=== PATIENT | male | born 1945 | race Caucasian/White ===

== ENCOUNTER → 2016-05-12 | Outpatient (CLI) | payer MEDICARE, OTHER ==
[2016-05-12 12:19] LABS: Anion Gap 10 mmol/L; Blood Urea Nitrogen 17 mg/dL (9-20); Calcium 9.3 mg/dL (8.4-10.2); Carbon Dioxide 28 mmol/L (22-30); Chloride 107 mmol/L (98-107); Glucose 130 mg/dL (74-99); Non-African American GFR(MDRD) >60 (>60 ml/min/1.73 sqM); Potassium 4.8 mmol/L (3.5-5.1); Sodium 145 mmol/L (137-145)
[2016-05-12 12:42] LABS: Prostate Specific Antigen <0.06 ng/mL (0.00-4.00)
== END | disposition home or self-care (01) ==
LOC: LABWHC1 08:07
PROVIDERS: ATTEND Urology
DX: C61 Malignant neoplasm of prostate (principal); E11.9 Type 2 diabetes mellitus without complications
CPT/HCPCS: 36415; 80048; 84153

== ENCOUNTER → 2016-09-20 | Outpatient (CLI) | payer MEDICARE ==
[2016-09-20 10:54] LABS: ALT 39 U/L (21-72); AST 25 U/L (17-59); Alkaline Phosphatase 73 U/L (38-126); Anion Gap 8 mmol/L; Blood Urea Nitrogen 14 mg/dL (9-20); Calcium 8.9 mg/dL (8.4-10.2); Carbon Dioxide 29 mmol/L (22-30); Chloride 106 mmol/L (98-107); Cholesterol 96 mg/dL (<200); Glucose 112 mg/dL (74-99); HDL Cholesterol 28 mg/dL (40-60); Non-African American GFR(MDRD) >60 (>60 ml/min/1.73 sqM); Sodium 143 mmol/L (137-145); Total Bilirubin 0.6 mg/dL (0.2-1.3); Total Protein 6.6 g/dL (6.3-8.2); Triglycerides 66 mg/dL (<150)
== END | disposition home or self-care (01) ==
LOC: LABWHC1 09:19
PROVIDERS: ATTEND Internal Medicine Interventional Cardiology
DX: E78.2 Mixed hyperlipidemia (principal)
CPT/HCPCS: 36415; 80053; 80061

== ENCOUNTER → 2016-11-01 | Outpatient (CLI) | payer MEDICARE ==
[2016-11-01 09:06] LABS: CH 30.3; CHCM 32.3; HCT 45.5 % (39.0-53.0); HDW 2.36; HGB 15.2 gm/dL (13.0-17.5); MCH 31.6 pg (25.0-35.0); MCHC 33.5 g/dL (31.0-37.0); MCV 94.4 fL (80.0-100.0); Mean Platelet Volume 7.7; RBC 4.81 m/uL (4.30-5.90); RDW 12.7 % (11.5-15.5); WBC 8.4 k/uL (3.8-10.6)
[2016-11-01 09:13] LABS: ALT 36 U/L (21-72); AST 21 U/L (17-59); Alkaline Phosphatase 79 U/L (38-126); Anion Gap 8 mmol/L; Blood Urea Nitrogen 15 mg/dL (9-20); Carbon Dioxide 30 mmol/L (22-30); Chloride 106 mmol/L (98-107); Cholesterol 104 mg/dL (<200); Glucose 119 mg/dL (74-99); HDL Cholesterol 31 mg/dL (40-60); Non-African American GFR(MDRD) >60 (>60 ml/min/1.73 sqM); Potassium 4.6 mmol/L (3.5-5.1); Sodium 144 mmol/L (137-145); Total Bilirubin 0.5 mg/dL (0.2-1.3); Total Protein 6.5 g/dL (6.3-8.2); Triglycerides 80 mg/dL (<150)
[2016-11-01 10:54] LABS: Hemoglobin A1C 6.7 % (4.2-6.1)
== END | disposition home or self-care (01) ==
LOC: LABWHC1 07:56
PROVIDERS: ATTEND Family Medicine
DX: Z00.00 Encounter for general adult medical examination without abnormal findings (principal); E11.9 Type 2 diabetes mellitus without complications; E03.8 Other specified hypothyroidism
CPT/HCPCS: 36415; 80053; 80061; 83036; 84439; 84443; 85027

== ENCOUNTER → 2017-04-01 | Outpatient (CLI) | payer MEDICARE ==
[2017-04-01 08:58] LABS: ALT 66 U/L (21-72); AST 37 U/L (17-59); Cholesterol 127 mg/dL (<200); HDL Cholesterol 26 mg/dL (40-60)
== END | disposition home or self-care (01) ==
LOC: LABWHC1 08:05
PROVIDERS: ATTEND Internal Medicine Interventional Cardiology
DX: E78.2 Mixed hyperlipidemia (principal)
CPT/HCPCS: 36415; 80061; 84450; 84460

== ENCOUNTER → 2017-05-10 | Outpatient (CLI) | payer MEDICARE ==
[2017-05-10 11:08] LABS: Basophils % (A) 1 %; Eosinophils # (A) 0.1 k/uL (0-0.7); Eosinophils % (A) 2 %; HCT 44.7 % (39.0-53.0); HGB 14.7 gm/dL (13.0-17.5); Lymphocytes # (A) 0.9 k/uL (1.0-4.8); Lymphocytes % (A) 11 %; MCH 30.7 pg (25.0-35.0); MCHC 32.8 g/dL (31.0-37.0); MCV 93.7 fL (80.0-100.0); Mean Platelet Volume 8.2; Monocytes # (A) 0.5 k/uL (0-1.0); Monocytes % (A) 6 %; Neutrophils # (A) 6.2 k/uL (1.3-7.7); Neutrophils % (A) 80 %; Platelet Count 205 k/uL (150-450); RBC 4.77 m/uL (4.30-5.90); RDW 13.8 % (11.5-15.5); WBC 7.8 k/uL (3.8-10.6)
[2017-05-10 11:19] LABS: ALT 69 U/L (21-72); AST 36 U/L (17-59); Albumin 3.9 g/dL (3.5-5.0); Alkaline Phosphatase 75 U/L (38-126); Anion Gap 11 mmol/L; Blood Urea Nitrogen 18 mg/dL (9-20); Calcium 9.1 mg/dL (8.4-10.2); Carbon Dioxide 27 mmol/L (22-30); Chloride 103 mmol/L (98-107); Cholesterol 116 mg/dL (<200); Glucose 150 mg/dL (74-99); HDL Cholesterol 22 mg/dL (40-60); LDL Cholesterol,Calculated 71 mg/dL (0-99); Potassium 4.8 mmol/L (3.5-5.1); Sodium 141 mmol/L (137-145); Total Bilirubin 0.8 mg/dL (0.2-1.3); Total Protein 6.4 g/dL (6.3-8.2); Triglycerides 115 mg/dL (<150)
[2017-05-10 11:55] LABS: Prostate Specific Antigen <0.10 ng/mL (0.00-4.00)
[2017-05-10 17:09] LABS: Hemoglobin A1C 8.7 % (4.0-6.0)
== END | disposition home or self-care (01) ==
LOC: LABWHC1 10:17
PROVIDERS: ATTEND Family Medicine
DX: E78.5 Hyperlipidemia, unspecified (principal); E03.9 Hypothyroidism, unspecified; E11.9 Type 2 diabetes mellitus without complications; D07.5 Carcinoma in situ of prostate; D49.59 Neoplasm of unspecified behavior of other genitourinary organ
CPT/HCPCS: 36415; 80053; 80061; 83036; 84153; 84439; 84443; 85025

== ENCOUNTER → 2017-10-17 | Outpatient (CLI) | payer MEDICARE ==
[2017-10-17 09:42] LABS: ALT 41 U/L (21-72); AST 27 U/L (17-59); Cholesterol 99 mg/dL (<200); Creatine Kinase 79 U/L (55-170); HDL Cholesterol 26 mg/dL (40-60); LDL Cholesterol,Calculated 57 mg/dL (0-99); Triglycerides 82 mg/dL (<150)
== END | disposition home or self-care (01) ==
LOC: LABWHC1 08:17
PROVIDERS: ATTEND Internal Medicine Interventional Cardiology
DX: E78.2 Mixed hyperlipidemia (principal)
CPT/HCPCS: 36415; 80061; 82550; 84450; 84460

== ENCOUNTER → 2017-10-31 | Outpatient (CLI) | payer MEDICARE ==
[2017-10-31 08:26] LABS: Basophils # (A) 0.1 k/uL (0-0.2); Basophils % (A) 1 %; Eosinophils # (A) 0.2 k/uL (0-0.7); Eosinophils % (A) 3 %; HCT 45.3 % (39.0-53.0); HGB 14.8 gm/dL (13.0-17.5); Lymphocytes # (A) 2.3 k/uL (1.0-4.8); Lymphocytes % (A) 28 %; MCH 30.4 pg (25.0-35.0); MCHC 32.6 g/dL (31.0-37.0); MCV 93.2 fL (80.0-100.0); Mean Platelet Volume 8.1; Monocytes # (A) 0.6 k/uL (0-1.0); Monocytes % (A) 8 %; Neutrophils # (A) 4.9 k/uL (1.3-7.7); Neutrophils % (A) 59 %; Platelet Count 227 k/uL (150-450); RBC 4.86 m/uL (4.30-5.90); RDW 13.3 % (11.5-15.5); WBC 8.3 k/uL (3.8-10.6)
[2017-10-31 08:36] LABS: Albumin 3.9 g/dL (3.5-5.0); Calcium 9.1 mg/dL (8.4-10.2); Potassium 4.9 mmol/L (3.5-5.1); Total Bilirubin 0.4 mg/dL (0.2-1.3); Total Protein 6.2 g/dL (6.3-8.2)
[2017-10-31 08:52] LABS: T4, Free (Free Thyroxine) 1.07 ng/dL (0.78-2.19)
[2017-10-31 19:04] LABS: Hemoglobin A1C 6.3 % (4.0-6.0)
== END | disposition home or self-care (01) ==
LOC: LABWHC1 07:39
PROVIDERS: ATTEND Family Medicine
DX: E11.9 Type 2 diabetes mellitus without complications (principal)
CPT/HCPCS: 36415; 80053; 83036; 84439; 84443; 85025

== ENCOUNTER → 2018-04-27 | Outpatient (CLI) | payer MEDICARE ==
[2018-04-27 08:08] LABS: Basophils # (A) 0.1 k/uL (0-0.2); Basophils % (A) 1 %; Eosinophils # (A) 0.2 k/uL (0-0.7); Eosinophils % (A) 2 %; HCT 47.6 % (39.0-53.0); HGB 15.5 gm/dL (13.0-17.5); Lymphocytes # (A) 2.2 k/uL (1.0-4.8); Lymphocytes % (A) 26 %; MCH 30.9 pg (25.0-35.0); MCHC 32.6 g/dL (31.0-37.0); Mean Platelet Volume 7.7; Monocytes # (A) 0.5 k/uL (0-1.0); Monocytes % (A) 6 %; Neutrophils # (A) 5.3 k/uL (1.3-7.7); Neutrophils % (A) 63 %; Platelet Count 228 k/uL (150-450); RBC 5.01 m/uL (4.30-5.90); WBC 8.3 k/uL (3.8-10.6)
[2018-04-27 12:44] LABS: Albumin 4.4 g/dL (3.80-4.90); Albumin/Globulin Ratio 2.59 (1.20-2.10); Anion Gap 8.5 mmol/L (4.00-12.00); Calcium 8.9 mg/dL (8.7-10.3); Carbon Dioxide 28.5 mmol/L (21.6-31.8); Globulin 1.7 g/dL (1.6-3.3); Potassium 4.5 mmol/L (3.5-5.5); Total Bilirubin 0.7 mg/dL (0.3-1.2); Total Protein 6.1 g/dL (6.2-8.2)
[2018-04-27 12:53] LABS: T4, Free (Free Thyroxine) 1.2 ng/dL (0.80-1.80)
[2018-04-27 19:12] LABS: Hemoglobin A1C 7.6 % (4.0-6.0)
== END | disposition home or self-care (01) ==
LOC: LABWHC1 07:42
PROVIDERS: ATTEND Internal Medicine Interventional Cardiology
DX: C61 Malignant neoplasm of prostate (principal); E78.2 Mixed hyperlipidemia; E03.9 Hypothyroidism, unspecified; E11.9 Type 2 diabetes mellitus without complications; E66.9 Obesity, unspecified
CPT/HCPCS: 36415; 80053; 80061; 83036; 84153; 84439; 84443; 85025

== ENCOUNTER → 2019-05-08 | Outpatient (CLI) | payer MEDICARE ==
[2019-05-08 10:04] LABS: HGB 15.3 gm/dL (13.0-17.5); MCH 30.9 pg (25.0-35.0); MCHC 31.9 g/dL (31.0-37.0); MCV 96.6 fL (80.0-100.0); Mean Platelet Volume 8.2; Platelet Count 247 k/uL (150-450); RBC 4.97 m/uL (4.30-5.90); RDW 12.7 % (11.5-15.5)
[2019-05-08 15:56] LABS: African American GFR (CKD) 97.9 (60.0-200.0); Albumin 4.3 g/dL (3.80-4.90); Albumin/Globulin Ratio 2.53 (1.60-3.17); Anion Gap 6.9 mmol/L (4.00-12.00); BUN/Creat Ratio 23.33 Ratio (12.00-20.00); Calcium 9.1 mg/dL (8.7-10.3); Carbon Dioxide 27.1 mmol/L (21.6-31.8); Chol/HDL Ratio 4.61; Globulin 1.7 g/dL (1.6-3.3); Non-African American GFR(CKD) 84.4 (60.0-200.0); Potassium 4.7 mmol/L (3.5-5.5); Total Bilirubin 0.6 mg/dL (0.3-1.2)
[2019-05-08 16:05] LABS: T4, Free (Free Thyroxine) 1.3 ng/dL (0.80-1.80)
[2019-05-08 18:23] LABS: Hemoglobin A1C 6.8 % (4.0-6.0)
== END | disposition home or self-care (01) ==
LOC: LABWHC1 08:35
PROVIDERS: ATTEND Nurse Practitioner Adult Health
DX: E78.2 Mixed hyperlipidemia (principal); C61 Malignant neoplasm of prostate; E11.9 Type 2 diabetes mellitus without complications; E03.9 Hypothyroidism, unspecified
CPT/HCPCS: 36415; 80053; 80061; 83036; 84153; 84439; 84443; 85027

== ENCOUNTER → 2019-11-06 | Outpatient (CLI) | payer MEDICARE ==
[2019-11-06 10:30] LABS: HCT 45.7 % (39.0-53.0); MCH 31.9 pg (25.0-35.0); MCHC 32.8 g/dL (31.0-37.0); MCV 97.4 fL (80.0-100.0); Mean Platelet Volume 8.3; Platelet Count 222 k/uL (150-450); RBC 4.69 m/uL (4.30-5.90); WBC 6.2 k/uL (3.8-10.6)
[2019-11-06 17:03] LABS: T4, Free (Free Thyroxine) 1.3 ng/dL (0.80-1.80)
[2019-11-06 17:19] LABS: African American GFR (CKD) 85.6 (60.0-200.0); Albumin 4.2 g/dL (3.80-4.90); Albumin/Globulin Ratio 2.21 (1.60-3.17); Anion Gap 7.2 mmol/L (4.00-12.00); Calcium 9.1 mg/dL (8.7-10.3); Carbon Dioxide 25.8 mmol/L (21.6-31.8); Chol/HDL Ratio 4.65; Globulin 1.9 g/dL (1.6-3.3); LDL Cholesterol,Calculated 74.8 mg/dL (0.0-131.0); Non-African American GFR(CKD) 73.8 (60.0-200.0); Potassium 4.5 mmol/L (3.5-5.5); Total Bilirubin 0.7 mg/dL (0.2-1.2); Total Protein 6.1 g/dL (6.2-8.2); VLDL Calculation 20.2 mg/dL (5.00-40.00)
== END | disposition home or self-care (01) ==
LOC: LABWHC1 08:49
PROVIDERS: ATTEND Family Medicine
DX: E11.9 Type 2 diabetes mellitus without complications (principal); C61 Malignant neoplasm of prostate; E03.9 Hypothyroidism, unspecified; E78.2 Mixed hyperlipidemia
CPT/HCPCS: 36415; 80053; 80061; 83036; 84153; 84439; 84443; 85027

== ENCOUNTER → 2020-04-17 | Outpatient (CLI) | payer MEDICARE ==
[2020-04-17 10:45] LABS: Basophils # (A) 0.1 k/uL (0-0.2); Basophils % (A) 1 %; Eosinophils # (A) 0.1 k/uL (0-0.7); Eosinophils % (A) 2 %; HCT 46.9 % (39.0-53.0); HGB 15.5 gm/dL (13.0-17.5); Lymphocytes # (A) 1.7 k/uL (1.0-4.8); Lymphocytes % (A) 27 %; MCV 96.9 fL (80.0-100.0); Mean Platelet Volume 7.7; Monocytes # (A) 0.4 k/uL (0-1.0); Monocytes % (A) 7 %; Neutrophils # (A) 3.9 k/uL (1.3-7.7); Neutrophils % (A) 61 %; Platelet Count 216 k/uL (150-450); RBC 4.84 m/uL (4.30-5.90); RDW 12.6 % (11.5-15.5); WBC 6.5 k/uL (3.8-10.6)
[2020-04-17 15:21] LABS: ALT 42 U/L (10-49); AST 28 U/L (14-35); African American GFR (CKD) 85.6 (60.0-200.0); Albumin/Globulin Ratio 2.33 (1.60-3.17); Alkaline Phosphatase 71 U/L (41-126); Calcium 9.7 mg/dL (8.7-10.3); Carbon Dioxide 30.6 mmol/L (21.6-31.8); Chloride 105 mmol/L (96-109); Chol/HDL Ratio 4.13; Cholesterol 128 mg/dL (0-200); Globulin 1.8 g/dL (1.6-3.3); Glucose 141 mg/dL (70-110); LDL Cholesterol,Calculated 71.2 mg/dL (0.0-131.0); Non-African American GFR(CKD) 73.8 (60.0-200.0); Potassium 4.7 mmol/L (3.5-5.5); Sodium 141 mmol/L (135-145); Total Bilirubin 0.7 mg/dL (0.2-1.2)
[2020-04-17 15:58] LABS: Prostate Specific Antigen <0.1 ng/mL (0.0-6.5)
[2020-04-17 17:23] LABS: Hemoglobin A1C 7.6 % (4.0-6.0)
== END | disposition home or self-care (01) ==
LOC: LABWHC1 09:42
PROVIDERS: ATTEND Nurse Practitioner Adult Health
DX: E03.9 Hypothyroidism, unspecified (principal); E78.2 Mixed hyperlipidemia; E11.9 Type 2 diabetes mellitus without complications; C61 Malignant neoplasm of prostate
CPT/HCPCS: 36415; 80053; 80061; 83036; 84153; 84439; 84443; 85025

== ENCOUNTER → 2020-06-19 | Outpatient (CLI) | payer MEDICARE, OTHER ==
--- NOTE | 2020-06-19 14:49 | MR ---
EXAMINATION TYPE: MR shoulder LT wo con DATE OF EXAM: 06/19/2020 1:59 PM COMPARISON: 06/18/2020 HISTORY: Left shoulder pain, cant raise above head TECHNIQUE: Multiplanar multispin echo imaging of the left shoulder was performed. FINDINGS: Rotator cuff : Complete retracted tear of the supraspinatus tendon with retraction of approximately 3 .7 cm. There is also complete tear of the infraspinatus tendon. Partial tear of the subscapularis ten don noted. There is elevation of the humeral head relative to the central glenoid axis. Bursa: No bursal effusion or thickening is seen. Musculature: There is muscular atrophy of both the supra and infraspinatus musculature indicating chr onic process. Acromioclavicular joint : Severe degenerative narrowing AC joint. Marked narrowing subacromial joint space given elevation humeral head. Osseous structures : There are no fractures or regions of abnormal bone marrow signal intensity. Long biceps tendon : The biceps tendon is normally situated within the bicipital groove. No complete or partial biceps tendon tear is present. Glenohumeral Joint fluid : There is no glenohumeral joint effusion. Cartilage and Bone : No focal hyaline cartilage defects are noted. No Hill-Sachs, reverse Hill-Sachs, or bony Bankart lesions are seen. Labrum : There are no SLAP or soft tissue Bankart lesions. No paralabral cysts are seen. OTHER FINDINGS : none IMPRESSION: 1. Chronic rotator cuff tear of the supra and infraspinatus tendon with partial tear subscapularis an d elevation of the humeral head relative to the central glenoid axis.
== END | disposition home or self-care (01) ==
LOC: RADMRIMAIN 12:55
PROVIDERS: ATTEND Orthopaedic Surgery
DX: M75.112 Incomplete rotator cuff tear or rupture of left shoulder, not specified as traumatic (principal)

== ENCOUNTER 2020-08-06 08:01 | Day surgery (SDC) | payer MEDICARE, OTHER ==
[2020-08-01 10:11] VITALS: BMI 38.4
--- NOTE | 2020-08-05 23:11 | HP ---
HISTORY AND PHYSICAL DATE OF SURGERY: 08/06/2020 Kali Jeong is a 75-year-old gentleman seen with progressive left shoulder pain. After treatment options were discussed with him, he elected to proceed with arthroscopy. Consent regarding the procedure was obtained. Clearance was provided by Dr. Topher Varner and cardiac clearance by Dr. Webb. PAST MEDICAL HISTORY: Hypertension, jtq-khpmeoc-jzdizaexn diabetes, hypothyroidism, hyperlipidemia. PAST SURGICAL HISTORY: Right knee arthroscopy, tonsillectomy, prostate surgery. DAILY MEDICATIONS: Aspirin, atorvastatin, glipizide, Janumet, levothyroxine, lisinopril. ALLERGIES: NONE. SOCIAL HISTORY: He denies tobacco use. PHYSICAL EVALUATION OF THE LEFT SHOULDER: Flexion 130 degrees, abduction 90 degrees. External rotation is minus 30. Tenderness along the anterolateral acromion and rotator cuff insertion. Impingement is positive at 90. Drop-arm sign positive. Distal neurovascular exam intact. RADIOGRAPHS: Radiographs of the left shoulder revealed a type 2 acromion, evidence for acromioclavicular joint osteoarthritis and cystic changes of the greater tuberosity. Left shoulder MRI revealed a large retracted rotator cuff tear, severe acromioclavicular joint osteoarthritis. IMPRESSION: 1. Left shoulder impingement with rotator cuff tear. 2. Left shoulder acromioclavicular joint osteoarthritis. 3. Hypertension. 4. Hyperlipidemia. 5. Dmp-[id number]-vtiosccvv diabetes. PLAN: Left shoulder arthroscopy with subacromial decompression, arthroscopic rotator cuff repair, arthroscopic Jerod procedure and debridement. MMODL / IJN: [id number] /
[~2020-08-06 08:01] MED LIST: DEXAMETHASONE SOD PHOSPHATE 4 MG/ML 1 ML VIAL IV ONE; LACTATED RINGERS 1,000 ML IV SCH; LIDOCAINE 1% (10MG/ML) FOR IV START INTRADERMA PRN; MIDAZOLAM 2 MG/2 ML VIAL IV PRN; ONDANSETRON 4 MG/2 ML VIAL IVP ONE; fentaNYL (PF) 50 MCG/ML 2 ML AMP IVP PRN
[2020-08-06 08:49] LABS: Glucose,Whole Blood 108 mg/dL (75-99)
[2020-08-06] MEDS ORDERED: GLYCOPYRROLATE 0.2 MG/ML 2 ML VIAL ONE (10:11)
[2020-08-06] MEDS ORDERED: ROCURONIUM 10 MG/ML (5 ML VIAL) IV ONE (10:11)
[2020-08-06] MEDS ORDERED: NEOSTIGMINE 1 MG/ML 10 ML VIAL ONE (10:11)
[2020-08-06] MEDS ORDERED: PROPOFOL 10 MG/ML 20 ML VIAL IV ONE (10:11)
[2020-08-06] MEDS ORDERED: LIDOCAINE 1% INJ 10MG/ML (20 ML MDV) ONE (10:11)
[2020-08-06] MEDS ORDERED: ROPIVACAINE 5 MG/ML 30 ML VIAL ONE (10:11)
[2020-08-06] MEDS ORDERED: SUCCINYLCHOLINE CHLORIDE VIAL 200 MG/10 ML VIAL IV ONE (10:11)
[2020-08-06] MEDS ORDERED: fentaNYL (PF) 50 MCG/ML 2 ML AMP ONE (10:11)
--- NOTE | 2020-08-06 12:31 | P.OP ---
Date of Procedure: 08/06/20 Preoperative Diagnosis: Left shoulder impingement with rotator cuff tear Postoperative Diagnosis: 1. Left shoulder massive retracted rotator cuff tear 2. Left shoulder impingement 3. Left shoulder acromioclavicular joint osteoarthritis 4. Left shoulder partial long head biceps tendon tear Procedure(s) Performed: 1. Left shoulder arthroscopic rotator cuff repair 2. Left shoulder arthroscopic subacromial decompression 3. Left shoulder arthroscopic Jerod procedure 4. Left shoulder arthroscopic biceps tenotomy Implants: 3Arthrex swivel lock anchors Anesthesia: GETA, regional (Interscalene block) Surgeon: Chavez Garcia [employer] Equipment Mechanic #1: Tano Cutler Estimated Blood Loss (ml): 11 Pathology: none sent Condition: stable Disposition: PACU Indications for Procedure: 75-year-old patient who was seen with progressive left shoulder pain. After treatment options were discussed, he elected to proceed with arthroscopy. Operative Findings: See description of procedure Description of Procedure: Patient underwent an interscalene block by department of anesthesia. The patient was then taken to the operative suite. The patient underwent a general anesthetic by the department of anesthesia. The patient was placed into a lateral position and secured. There was appropriate padding of the bony prominence. Left shoulder was then prepped and draped in normal sterile orthopedic fashion. We placed the extremity in 10 pounds of longitudinal traction. A posterior incision was now made for a posterior working portal site. The trocar and cannula were inserted into the glenohumeral joint. Arthroscopy was initiated. Spinal needle was now inserted anteriorly, to ascertain the anterior working portal site. An incision was now made in that area, a trocar was inserted followed by a probe. There was significant partial tearing long head biceps tendon with only a few fibers remaining. There were mild grade 1 chondromalacia changes of glenohumeral joint. The labrum appeared degenerative but no tears were present. I performed an arthroscopic biceps tenotomy. I removed instruments from the glenohumeral joint. Utilizing the posterior working portal site, the trocar and cannula were inserted into the subacromial space. Arthroscopy initiated. I made an incision 2 fingerbreadths lateral to the acromion. I introduced my trocar followed by my ArthroCare ablator. I now began ablating thick subacromial bursal tissue, which exposed the undersurface of the anterior acromion. There was diminished subacromial space. There was a very prominent anterior acromion. A motorized bur was introduced and a subacromial decompression was performed. I also excised some osteophytes off the inferior aspect of the distal clavicle. The AC joint was visualized and noted to be fairly arthritic. The motorized bur was introduced in the anterior portal site and a Jerod procedure was performed without difficulty, decompressing the AC joint nicely. I turned my attention to the rotator cuff. There was a massive retracted rotator cuff tendon tear. It was a mobile over the footprint. I began meticulously releasing the tendon from superiorly and inferiorly. I worked anteriorly and posteriorly. After I was done I: Pull the central portion of the tendon just to the edge the footprint. I decided to repair the superior portion of the tear to provide some stability. I abraded the footprint with a motorized bur in that area. I did cheat the articular surface a little bit. I now passed 5 everted mattress sutures through good bites of rotator cuff tendon. I now pulled the central 2 limbs to take some tention off the repair and repaired that with one single Arthrex anchor. I now took the remaining 4 suture limbs anteriorly and repaired that with one anchor and then repaired the 4 suture limbs posteriorly with another anchor. All suture limbs were cut. I noted a good repair along the central superior portion of the tendon. Again the anterior aspect and posterior aspects were not repairable. Instruments now removed from the portal sites. All portal sites were approximated with nylon suture. Sterile dressings were applied followed by a shoulder immobilizer. Tano LYNN assisted in this complex case. The patient was awakened, transferred to a bed, and taken to recovery in stable condition. The prognosis remains guarded given this massive retracted tear.
[2020-08-06 12:50] VITALS: TEMP 97.6
[2020-08-06 12:53] VITALS: RESP 16
[2020-08-06 13:15] LABS: Glucose,Whole Blood 149 mg/dL (75-99)
[2020-08-06 13:38] VITALS: BP 127/75; PULSE 97
--- NOTE | 2020-08-06 16:45 | P.ANPRN ---
Procedure Note - Anesthesia - Nerve Block Performed Left Interscalene Time Out Performed: Yes (:) Date of Procedure: 08/06/20 Procedure Start Time: Procedure Stop Time: Location of Patient: PreOp Indication: Acute Post-Operative Pain, Requested by Surgeon (Dr Garcia) Sedation Type: Sedate with meaningful contact maintained Preparation: Sterile Prep Position: Supine Catheter: None Needle Types: Pajunk Needle Gauge: Other (see comment) (22g) Ultrasound used to visualize needle placement: Yes Ultrasound used to observe medication spread: Yes Injectate: 0.5% Ropivacaine (see comment for volume) (20cc) Blood Aspirated: No Pain Paresthesia on Injection Noted: No Resistance on Injection: Normal Image Stored and Saved: Yes Events: Uneventful and Well Tolerated
== END 2020-08-06 15:06 | disposition home or self-care (01) ==
LOC: OR 08:01
PROVIDERS: ATTEND Orthopaedic Surgery
DX: M75.102 Unspecified rotator cuff tear or rupture of left shoulder, not specified as traumatic (principal); M25.812 Other specified joint disorders, left shoulder; M19.012 Primary osteoarthritis, left shoulder; S46.112A Strain of muscle, fascia and tendon of long head of biceps, left arm, initial encounter; M94.212 Chondromalacia, left shoulder; M25.712 Osteophyte, left shoulder; E11.9 Type 2 diabetes mellitus without complications; E03.9 Hypothyroidism, unspecified; I10 Essential (primary) hypertension; E78.5 Hyperlipidemia, unspecified; F17.220 Nicotine dependence, chewing tobacco, uncomplicated; K21.9 Gastro-esophageal reflux disease without esophagitis; Z79.82 Long term (current) use of aspirin; Z79.84 Long term (current) use of oral hypoglycemic drugs; Z79.899 Other long term (current) drug therapy; Z79.890 Hormone replacement therapy; Z90.89 Acquired absence of other organs; Z98.890 Other specified postprocedural states; Z85.46 Personal history of malignant neoplasm of prostate; Z85.820 Personal history of malignant melanoma of skin; X58.XXXA Exposure to other specified factors, initial encounter
CPT/HCPCS: 64415; 76942; 29826; 29827; 29824; C1713 ×2; J2250; J0330; J1100; J2710; J0690; J2405; J2001; J3010; J2795; J2704

== ENCOUNTER → 2020-09-17 | Outpatient (CLI) | payer MEDICARE, OTHER ==
--- NOTE | 2020-09-17 15:51 | CT ---
EXAMINATION TYPE: CT sinus wo con DATE OF EXAM: 09/17/2020 COMPARISON: None HISTORY: 89 year-old female J32.9, Chronic sinusitis. CT DLP: 655.4 mGycm Automated exposure control for dose reduction was used. TECHNIQUE: Noncontrast axial views of the paranasal sinuses were obtained. Coronal reconstructions pe rformed. FINDINGS: PARANASAL SINUSES: There is mild mucosal thickening within the left maxillary sinus and trace near the right maxillary i nfundibulum. Left frontal sinus is hypoplastic. Ethmoid air cells and sphenoid sinuses are well pneumatized. There is no air-fluid level. Reactive vonda- osteogenesis is not seen. There is no destruction of the osseous bhatt of the paranasal sinuses. THE NASAL CAVITY: The osteomeatal complexes are patent. Slight rightward nasal septal deviation. The imaged brain and orbits are normal in appearance. Most of the mastoid air cells are excluded from view. Middle ear cavities are well pneumatized. Reformatted images confirm above findings. IMPRESSION: Mild chronic maxillary sinus disease, left greater than right. Slight rightward nasal septal deviatio n.
== END | disposition home or self-care (01) ==
LOC: RADCTMAIN 14:35
PROVIDERS: ATTEND Otolaryngology
DX: J32.0 Chronic maxillary sinusitis (principal); J34.2 Deviated nasal septum
CPT/HCPCS: 70486

== ENCOUNTER → 2020-10-27 | Outpatient (CLI) | payer MEDICARE, OTHER ==
[2020-10-27 15:02] LABS: HCT 45.3 % (39.6-50.0); HGB 14.1 g/dL (13.0-17.0); MCH 30.6 pg (27.0-32.0); MCHC 31.1 g/dL (32.0-37.0); MCV 98.3 fL (80.0-97.0); Mean Platelet Volume 11.1 fL (9.5-12.2); Platelet Count 262 X 10*3/uL (140-440); RBC 4.61 X 10*6/uL (4.40-5.60); RDW 12.7 % (11.5-14.5)
[2020-10-27 15:31] LABS: T4, Free (Free Thyroxine) 1.2 ng/dL (0.80-1.80)
[2020-10-27 15:39] LABS: African American GFR (CKD) 96.5 (60.0-200.0); Albumin/Globulin Ratio 1.9 (1.60-3.17); Anion Gap 6.3 mmol/L (4.00-12.00); BUN/Creat Ratio 21.11 Ratio (12.00-20.00); Calcium 9.1 mg/dL (8.7-10.3); Carbon Dioxide 30.7 mmol/L (21.6-31.8); Chol/HDL Ratio 4.46; Globulin 2.1 g/dL (1.6-3.3); LDL Cholesterol,Calculated 58.6 mg/dL (0.0-131.0); Non-African American GFR(CKD) 83.3 (60.0-200.0); Potassium 4.6 mmol/L (3.5-5.5); Total Bilirubin 0.6 mg/dL (0.2-1.2); Total Protein 6.1 g/dL (6.2-8.2); VLDL Calculation 24.4 mg/dL (5.00-40.00)
[2020-10-28 13:31] LABS: Hemoglobin A1C 5.5 % (4.0-6.0)
== END | disposition home or self-care (01) ==
LOC: LABWHC1 09:18
PROVIDERS: ATTEND Internal Medicine Interventional Cardiology
DX: E11.9 Type 2 diabetes mellitus without complications (principal); E78.2 Mixed hyperlipidemia; E03.9 Hypothyroidism, unspecified; C61 Malignant neoplasm of prostate
CPT/HCPCS: 36415; 80053; 80061; 83036; 84439; 84443; 85027

== ENCOUNTER → 2021-11-17 | Outpatient (CLI) | payer MEDICARE, OTHER ==
[2021-11-17 14:12] LABS: Basophils # (A) 0.06 X 10*3/uL (0.00-0.10); Basophils % (A) 0.8 %; Eosinophils # (A) 0.13 X 10*3/uL (0.04-0.35); Eosinophils % (A) 1.7 %; HCT 45.2 % (39.6-50.0); HGB 13.8 g/dL (13.0-17.0); Immature Grans, Automated 0.3 %; Lymphocytes # (A) 2.45 X 10*3/uL (0.90-5.00); Lymphocytes % (A) 31.9 %; MCH 29.7 pg (27.0-32.0); MCHC 30.5 g/dL (32.0-37.0); MCV 97.4 fL (80.0-97.0); Mean Platelet Volume 10.7 fL (9.5-12.2); Monocytes % (A) 7.8 %; NRBC Per 100 WBC 0 /100 WBCS (0.0-0.0); Neutrophils # (A) 4.42 X 10*3/uL (1.80-7.70); Neutrophils % (A) 57.5 %; Platelet Count 257 X 10*3/uL (140-440); RBC 4.64 X 10*6/uL (4.40-5.60); RDW 12.9 % (11.5-14.5); WBC 7.68 X 10*3/uL (4.50-10.00)
[2021-11-17 14:31] LABS: ALT 33 U/L (10-49); AST 31 U/L (14-35); African American GFR (CKD) 84.4 (60.0-200.0); Albumin 4.1 g/dL (3.8-4.9); Albumin/Globulin Ratio 1.78 (1.60-3.17); Alkaline Phosphatase 67 U/L (41-126); Blood Urea Nitrogen 15.1 mg/dL (9.0-27.0); Chloride 105 mmol/L (96-109); Chol/HDL Ratio 4.47 Ratio; Globulin 2.3 g/dL (1.6-3.3); Glucose 91 mg/dL (70-110); LDL Cholesterol,Calculated 68.3 mg/dL (0.0-131.0); Non-African American GFR(CKD) 72.8 (60.0-200.0); Potassium 4.3 mmol/L (3.5-5.5); Sodium 141 mmol/L (135-145); Total Protein 6.4 g/dL (6.2-8.2)
== END | disposition home or self-care (01) ==
LOC: LABWHC1 07:34
PROVIDERS: ATTEND Internal Medicine Interventional Cardiology
DX: I10 Essential (primary) hypertension (principal); E78.2 Mixed hyperlipidemia; E30.9 Disorder of puberty, unspecified; E11.9 Type 2 diabetes mellitus without complications
CPT/HCPCS: 36415; 80053; 80061; 83036; 84153; 84439; 84443; 85025

== ENCOUNTER → 2022-05-20 | Outpatient (CLI) | payer MEDICARE, OTHER ==
[2022-05-20 14:57] LABS: Basophils # (A) 0.05 X 10*3/uL (0.00-0.10); Basophils % (A) 0.8 %; Eosinophils % (A) 1.6 %; HCT 45.8 % (39.6-50.0); HGB 14.6 g/dL (13.0-17.0); Immature Grans, Automated 0.5 %; Lymphocytes # (A) 1.49 X 10*3/uL (0.90-5.00); Lymphocytes % (A) 23.7 %; MCH 30.9 pg (27.0-32.0); MCHC 31.9 g/dL (32.0-37.0); MCV 96.8 fL (80.0-97.0); Mean Platelet Volume 10.4 fL (9.5-12.2); Monocytes # (A) 0.67 X 10*3/uL (0.20-1.00); Monocytes % (A) 10.7 %; NRBC Per 100 WBC 0 /100 WBCS (0.0-0.0); Neutrophils # (A) 3.94 X 10*3/uL (1.80-7.70); Neutrophils % (A) 62.7 %; Platelet Count 247 X 10*3/uL (140-440); RBC 4.73 X 10*6/uL (4.40-5.60); RDW 12.6 % (11.5-14.5); WBC 6.28 X 10*3/uL (4.50-10.00)
[2022-05-20 16:39] LABS: ALT 32 U/L (10-49); AST 23 U/L (14-35); African American GFR (CKD) 75.2 (60.0-200.0); Albumin 4.4 g/dL (3.8-4.9); Albumin/Globulin Ratio 2.32 (1.60-3.17); Alkaline Phosphatase 78 U/L (41-126); BUN/Creat Ratio 11.45 Ratio (12.00-20.00); Blood Urea Nitrogen 12.6 mg/dL (9.0-27.0); Calcium 9.6 mg/dL (8.7-10.3); Carbon Dioxide 28.6 mmol/L (20.0-27.5); Chloride 104 mmol/L (96-109); Chol/HDL Ratio 3.86 Ratio; Globulin 1.9 g/dL (1.6-3.3); Glucose 145 mg/dL (70-110); LDL Cholesterol,Calculated 63.6 mg/dL (0.0-131.0); Non-African American GFR(CKD) 64.9 (60.0-200.0); Potassium 5.3 mmol/L (3.5-5.5); Sodium 141 mmol/L (135-145); Total Protein 6.3 g/dL (6.2-8.2)
[2022-05-20 16:41] LABS: PSA Annual Screen <0.014 ng/mL (0.000-4.000)
== END | disposition home or self-care (01) ==
LOC: LABWHC1 09:32
PROVIDERS: ATTEND Internal Medicine Interventional Cardiology
DX: Z00.00 Encounter for general adult medical examination without abnormal findings (principal); Z12.5 Encounter for screening for malignant neoplasm of prostate; E78.2 Mixed hyperlipidemia; E11.9 Type 2 diabetes mellitus without complications; E03.9 Hypothyroidism, unspecified
CPT/HCPCS: 84439; 80061; 80053; 84443; 85025; 83036; 36415; G0103

== ENCOUNTER → 2022-11-18 | Outpatient (CLI) | payer MEDICARE, OTHER ==
[2022-11-18 16:03] LABS: Basophils # (A) 0.06 X 10*3/uL (0.00-0.10); Basophils % (A) 0.8 %; Eosinophils # (A) 0.13 X 10*3/uL (0.04-0.35); Eosinophils % (A) 1.8 %; HCT 46.8 % (39.6-50.0); HGB 14.7 d/dL (12.0-15.0); Lymphocytes # (A) 2.31 X 10*3/uL (0.90-5.00); Lymphocytes % (A) 31.3 %; MCH 30.7 pg (27.0-32.0); MCHC 31.4 d/dL (32.0-37.0); MCV 97.7 FL (80.0-97.0); Mean Platelet Volume 11.2 FL (9.5-12.2); Monocytes % (A) 9.5 %; NRBC Per 100 WBC 0 X 10*3/uL (0.00-0.01); Neutrophils # (A) 4.17 X 10*3/uL (1.80-7.70); Neutrophils % (A) 56.3 %; Platelet Count 298 X 10*3/uL (140-440); RBC 4.79 X 10*6/uL (4.40-5.60); RDW 12.6 % (11.5-14.5); WBC 7.39 X 10*3/uL (4.50-10.00)
[2022-11-18 16:30] LABS: ALT 37 U/L (10-49); AST 28 U/L (14-35); Albumin 4.4 d/dL (3.8-4.9); Alkaline Phosphatase 84 U/L (41-126); BUN/Creat Ratio 14.83 Ratio (12.00-20.00); Blood Urea Nitrogen 17.8 mg/dL (9.0-27.0); Calcium 9.5 mg/dL (8.7-10.3); Carbon Dioxide 26.3 mmol/L (21.6-31.8); Chloride 104 mmol/L (96-109); Chol/HDL Ratio 4.41 Ratio; Globulin 2.1 d/dL (1.6-3.3); Glucose 116 mg/dL (70-110); LDL Cholesterol,Calculated 59.9 mg/dL (0.0-131.0); Potassium 5.1 mmol/L (3.5-5.5); Sodium 139 mmol/L (135-145); T4, Free (Free Thyroxine) 1.37 ng/dL (0.80-1.80); Total Bilirubin 0.6 mg/dL (0.3-1.2); Total Protein 6.5 d/dL (6.2-8.2)
[2022-11-18 16:32] LABS: Prostate Specific Antigen <0.01 ng/mL (0.000-6.500)
== END | disposition home or self-care (01) ==
LOC: LABWHC1 09:29
PROVIDERS: ATTEND Family Medicine
DX: C61 Malignant neoplasm of prostate (principal); E78.2 Mixed hyperlipidemia; E03.9 Hypothyroidism, unspecified; E11.9 Type 2 diabetes mellitus without complications
CPT/HCPCS: 36415; 80053; 80061; 83036; 84153; 84439; 84443; 85025

== ENCOUNTER → 2023-05-18 | Outpatient (CLI) | payer MEDICARE, OTHER ==
[2023-05-18 15:12] LABS: ALT 31 U/L (10-49); AST 21 U/L (14-35); Albumin 4.3 g/dL (3.8-4.9); Albumin/Globulin Ratio 2.05 Ratio (1.60-3.17); Alkaline Phosphatase 71 U/L (41-126); Blood Urea Nitrogen 19.2 mg/dL (9.0-27.0); Calcium 9.4 mg/dL (8.7-10.3); Carbon Dioxide 27.8 mmol/L (21.6-31.8); Chloride 104 mmol/L (96-109); Chol/HDL Ratio 3.99 Ratio; Globulin 2.1 g/dL (1.6-3.3); Glucose 138 mg/dL (70-110); LDL Cholesterol,Calculated 62.9 mg/dL (0.0-131.0); Potassium 4.8 mmol/L (3.5-5.5); Sodium 141 mmol/L (135-145); Total Bilirubin 0.5 mg/dL (0.3-1.2); Total Protein 6.4 g/dL (6.2-8.2)
[2023-05-18 15:31] LABS: Basophils % (A) 1.3 %; Eosinophils # (A) 0.18 X 10*3/uL (0.04-0.35); Eosinophils % (A) 2.4 %; HCT 46.2 % (39.6-50.0); HGB 14.7 g/dL (13.0-17.0); Lymphocytes # (A) 2.28 X 10*3/uL (0.90-5.00); Lymphocytes % (A) 30.7 %; MCHC 31.8 g/dL (32.0-37.0); MCV 97.5 FL (80.0-97.0); Mean Platelet Volume 10.5 FL (9.5-12.2); Monocytes # (A) 0.76 X 10*3/uL (0.20-1.00); Monocytes % (A) 10.2 %; NRBC Per 100 WBC 0 X 10*3/uL (0.00-0.01); Neutrophils # (A) 4.08 X 10*3/uL (1.80-7.70); Platelet Count 262 X 10*3/uL (140-440); RBC 4.74 X 10*6/uL (4.40-5.60); RDW 12.5 % (11.5-14.5); WBC 7.43 X 10*3/uL (4.50-10.00)
[2023-05-18 15:53] LABS: Prostate Specific Antigen <0.01 ng/mL (0.000-6.500)
== END | disposition home or self-care (01) ==
LOC: LABWHC1 08:59
PROVIDERS: ATTEND Family Medicine
DX: Z00.00 Encounter for general adult medical examination without abnormal findings (principal); C61 Malignant neoplasm of prostate; E11.9 Type 2 diabetes mellitus without complications; E03.9 Hypothyroidism, unspecified
CPT/HCPCS: 36415; 80053; 80061; 83036; 84153; 84443; 85025

== ENCOUNTER → 2023-11-24 | Outpatient (CLI) | payer MEDICARE, OTHER ==
[2023-11-24 15:23] LABS: ALT 38 U/L (10-49); AST 27 U/L (14-35); Albumin 4.2 g/dL (3.8-4.9); Alkaline Phosphatase 76 U/L (41-126); BUN/Creat Ratio 15.82 Ratio (12.00-20.00); Blood Urea Nitrogen 17.4 mg/dL (9.0-27.0); Calcium 9.8 mg/dL (8.7-10.3); Carbon Dioxide 26.3 mmol/L (21.6-31.8); Chloride 105 mmol/L (96-109); Chol/HDL Ratio 4.25 Ratio; Glucose 133 mg/dL (70-110); LDL Cholesterol,Calculated 45.5 mg/dL (0.0-131.0); Potassium 4.9 mmol/L (3.5-5.5); Sodium 142 mmol/L (135-145); T4, Free (Free Thyroxine) 1.37 ng/dL (0.80-1.80); Total Bilirubin 0.4 mg/dL (0.3-1.2); Total Protein 6.2 g/dL (6.2-8.2)
[2023-11-24 15:24] LABS: Prostate Specific Antigen <0.01 ng/mL (0.000-6.500)
[2023-11-24 16:51] LABS: Basophils # (A) 0.05 X 10*3/uL (0.00-0.10); Basophils % (A) 0.8 %; Eosinophils # (A) 0.15 X 10*3/uL (0.04-0.35); Eosinophils % (A) 2.5 %; HCT 45.1 % (39.6-50.0); HGB 14.7 g/dL (13.0-17.0); Lymphocytes # (A) 1.97 X 10*3/uL (0.90-5.00); Lymphocytes % (A) 32.8 %; MCH 30.9 pg (27.0-32.0); MCHC 32.6 g/dL (32.0-37.0); MCV 94.7 FL (80.0-97.0); Mean Platelet Volume 11.7 FL (9.5-12.2); Monocytes # (A) 0.51 X 10*3/uL (0.20-1.00); Monocytes % (A) 8.5 %; NRBC Per 100 WBC 0 X 10*3/uL (0.00-0.01); Neutrophils % (A) 54.9 %; Platelet Count 258 X 10*3/uL (140-440); RBC 4.76 X 10*6/uL (4.40-5.60); RDW 12.2 % (11.5-14.5); WBC 6.01 X 10*3/uL (4.50-10.00)
== END | disposition home or self-care (01) ==
LOC: LABWHC1 10:04
PROVIDERS: ATTEND Family Medicine
DX: C61 Malignant neoplasm of prostate (principal); E03.9 Hypothyroidism, unspecified; E78.2 Mixed hyperlipidemia; E11.9 Type 2 diabetes mellitus without complications
CPT/HCPCS: 36415; 80053; 80061; 83036; 84153; 84439; 84443; 85025

== ENCOUNTER → 2024-05-28 | Outpatient (CLI) | payer MEDICARE, OTHER ==
[2024-05-28 15:14] LABS: Basophils # (A) 0.06 X 10*3/uL (0.00-0.10); Basophils % (A) 0.8 %; Eosinophils % (A) 1.3 %; HCT 44.3 % (39.6-50.0); HGB 14.1 g/dL (13.0-17.0); Lymphocytes # (A) 2.07 X 10*3/uL (0.90-5.00); Lymphocytes % (A) 26.4 %; MCH 30.3 pg (27.0-32.0); MCHC 31.8 g/dL (32.0-37.0); MCV 95.3 FL (80.0-97.0); Mean Platelet Volume 10.7 FL (9.5-12.2); Monocytes # (A) 0.73 X 10*3/uL (0.20-1.00); Monocytes % (A) 9.3 %; NRBC Per 100 WBC 0 X 10*3/uL (0.00-0.01); Neutrophils # (A) 4.84 X 10*3/uL (1.80-7.70); Neutrophils % (A) 61.8 %; Platelet Count 253 X 10*3/uL (140-440); RBC 4.65 X 10*6/uL (4.40-5.60); RDW 12.7 % (11.5-14.5); WBC 7.83 X 10*3/uL (4.50-10.00)
[2024-05-28 15:43] LABS: ALT 21 U/L (10-49); AST 18 U/L (14-35); Albumin 4.2 g/dL (3.8-4.9); Alkaline Phosphatase 80 U/L (41-126); Blood Urea Nitrogen 18.9 mg/dL (9.0-27.0); Calcium 9.5 mg/dL (8.7-10.3); Carbon Dioxide 28.3 mmol/L (21.6-31.8); Chloride 106 mmol/L (96-109); Chol/HDL Ratio 3.73 Ratio; Glucose 114 mg/dL (70-110); LDL Cholesterol,Calculated 54.3 mg/dL (0.0-131.0); Potassium 4.8 mmol/L (3.5-5.5); Sodium 143 mmol/L (135-145); T4, Free (Free Thyroxine) 1.25 ng/dL (0.80-1.80); Total Bilirubin 0.4 mg/dL (0.3-1.2); Total Protein 6.2 g/dL (6.2-8.2)
[2024-05-28 15:45] LABS: PSA Annual Screen <0.014 ng/mL (0.000-4.000)
== END | disposition home or self-care (01) ==
LOC: LABWHC1 08:38
PROVIDERS: ATTEND Internal Medicine Interventional Cardiology
DX: Z00.00 Encounter for general adult medical examination without abnormal findings (principal); Z12.5 Encounter for screening for malignant neoplasm of prostate; E11.9 Type 2 diabetes mellitus without complications; E78.2 Mixed hyperlipidemia; E03.9 Hypothyroidism, unspecified; C61 Malignant neoplasm of prostate
CPT/HCPCS: 84439; 80061; 80053; 84443; 85025; 83036; 36415; G0103